=== PATIENT | male | born 1960 | race Caucasian/White ===

== ENCOUNTER 2018-08-16 16:45 | Inpatient (IN) | payer MEDICAID ==
[2018-08-15 22:00] VITALS: BP 152/64
[~2018-08-16] VITALS: Ht 165.1 cm; Wt 75.0 kg
[~2018-08-16 16:45] MED LIST: APIX5TAB3 PO; BISO1TAB39 PO; ETOD400T PO; FURO-150 PO; HUM7525 SQ; LANTUS SQ; LISI-600 PO; LYR75C PO; OXYC-145 PO; PANT40TA4 PO; TICA90TA2 PO
[2018-08-16] MEDS ORDERED: atropine 1 MG/1 ML vial IV ONE (17:15)
[2018-08-16] MEDS ORDERED: NORepinephrine bitartrate 8 MG in NS 250 ML BAG (32 mcg/ml) IV ONE (17:20)
--- NOTE | 2018-08-16 17:20 | NUR ---
PT PLACED ON ZOLL MONITOR. .5MG ATROPIN ADMINISTERED IV, DR RODRIGEZ AT BEDSIDE. PT HR 30.
[2018-08-16] MEDS ORDERED: atropine 0.1mg/ml 10ml syringe IV ONE (17:25)
[2018-08-16 17:39] LABS: BASOPHILS # (AUTO) 0.1 X10'3 (0-0.2); BASOPHILS % (AUTO) 0.9 % (0-1); EOSINOPHILS # (AUTO) 0.2 X10'3 (0-0.9); EOSINOPHILS % (AUTO) 3.1 % (0-6); HEMOGLOBIN 11.5 g/dl (14.0-17.9); LYMPHOCYTES # (AUTO) 1.6 X10'3 (1.1-4.8); LYMPHOCYTES % (AUTO) 21.1 % (21-51); MEAN CORPUSCULAR HEMOGLOBIN 29.6 PG (27.0-31.0); MEAN PLATELET VOLUME 9.4 FL (7.4-10.4); MONOCYTES # (AUTO) 0.8 X10'3 (0-0.9); MONOCYTES % (AUTO) 10.2 % (2-12); NEUTROPHILS % (AUTO) 64.7 % (42-75); PLATELET COUNT 164 X10'3 (140-440); RED CELL DISTRIBUTION WIDTH 13.4 % (11.5-14.5); WHITE BLOOD COUNT 7.8 X10'3 (4.5-11.0)
--- NOTE | 2018-08-16 17:41 | NUR ---
PT HR 30-34. SECOND DOSE OF .5MG ATROPINE IV ADMINISTERED IV. DR RODRIGEZ AWARE.
[2018-08-16 17:50] LABS: ALANINE AMINOTRANSFERASE 30 U/L (12-78); ALBUMIN 3.3 G/DL (3.4-5.0); ALBUMIN/GLOBULIN RATIO 0.9 (1.1-1.5); ALKALINE PHOSPHATASE 169 IU/L (46-116); ANION GAP 4 (8-16); ASPARTATE AMINO TRANSFERASE 14 U/L (10-37); BILIRUBIN,TOTAL 0.4 MG/DL (0.1-1.0); BLOOD UREA NITROGEN 26 MG/DL (7-18); BUN/CREATININE RATIO 16.1 (5.4-32.0); CALCIUM 8.7 MG/DL (8.5-10.1); CHLORIDE 100 MMOL/L (99-107); CREATININE 1.61 MG/DL (0.60-1.10); GLUCOSE 392 MG/DL (70-104); POTASSIUM 4.4 MMOL/L (3.5-5.1); SODIUM 133 MMOL/L (135-145); TOTAL CARBON DIOXIDE 28.8 MMOL/L (24-32); eGFR 44 ML/MIN
[2018-08-16 17:57] LABS: INR 1.2 INR; PARTIAL THROMBOPLASTIN TIME 39 SECONDS (22-32); PROTHROMBIN TIME 11.6 SECONDS (9.0-12.0)
[2018-08-16] MEDS ORDERED: NORepinephrine 8mg/ 250ml NS 250 ML IV SCH (18:00)
[2018-08-16] MEDS ORDERED: normal saline 1000ML IV soln IVB ONE (18:00)
[2018-08-16] MEDS ORDERED: atropine 0.1mg/ml 10ml syringe ONE (18:30)
[2018-08-16] MEDS ORDERED: 0.9 % SODIUM CHLORIDE 10 ML VIAL ONE (18:30)
[2018-08-16] MEDS ORDERED: DOPamine 400mg/D5W 250ml 250 ML IV SCH (18:55)
--- NOTE | 2018-08-16 19:15 | NUR ---
DR RODRIGEZ AT BEDSIDE GAVE VERBAL ORDER TO INCREASE DOPAMINE DRIP TO 10MCG/KG/MIN
[2018-08-16 19:16] LABS: ETHANOL < 0.010 GM/DL (0.0-0.010)
[2018-08-16] MEDS ORDERED: acetaminophen 325mg tablet PO PRN ×2 (20:10)
[2018-08-16] MEDS: K, MAG and/or Phos replacement - Verify level? MC SCH (20:10)
[2018-08-16] MEDS ORDERED: potassium Cl 20 mEq SR tablet PO PRN ×2 (20:10)
[2018-08-16] MEDS ORDERED: potassium Cl 40MEQ/NS 500ml 500 ML IV PRN ×2 (20:10)
[2018-08-16] MEDS ORDERED: morphine 4 MG/ML inj SYRINge IV PRN ×2 (20:10)
[2018-08-16] MEDS ORDERED: ondansetron/PF 4mg/2ml inj IV PRN (20:10)
[2018-08-16] MEDS ORDERED: PREG150C PO (20:15)
[2018-08-16] MEDS ORDERED: AMIO200T40 PO (20:15)
[2018-08-16] MEDS ORDERED: ATOR40TA PO (20:15)
[2018-08-16] MEDS ORDERED: DIGO125T78 PO (20:15)
[2018-08-16] MEDS ORDERED: LISI-604 PO (20:15)
[2018-08-16] MEDS ORDERED: LANTUS SQ (20:15)
[2018-08-16] MEDS ORDERED: CARV-50 PO (20:15)
[2018-08-16] MEDS ORDERED: ALBU8.5H8 INH (20:17)
[2018-08-16] MEDS ORDERED: albuterol 2.5 MG/3 ML nebule NEB SCH (20:25)
[2018-08-16] MEDS ORDERED: glucagon, human recombinant 1mg kit SUBCUT PRN (20:30)
[2018-08-16] MEDS ORDERED: dextrose 50%-water 50ml dispensing syringe IV PRN ×2 (20:30)
[2018-08-16] MEDS ORDERED: dextrose ORAL solution 15 GM/59 ML bottle PO PRN ×2 (20:30)
[2018-08-16] MEDS ORDERED: MESSAGE TO PHARMACY PO ONE (20:30)
[2018-08-16] MEDS: insulin glargine (Lantus) pen - multi-dose SQ SCH (21:00)
[2018-08-16 21:04] LABS: URINE AMPHETAMINE SCREEN NEGATIVE (Neg); URINE BARBITUATE SCREEN NEGATIVE (Neg); URINE BENZODIAZEPINES SCREEN NEGATIVE (Neg); URINE CANNABINOID SCREEN NEGATIVE (Neg); URINE COCAINE SCREEN NEGATIVE (Neg); URINE METHADONE SCREEN NEGATIVE (Neg); URINE OPIATE SCREEN POSITIVE (Neg); URINE PHENCYCLIDINE SCREEN NEGATIVE (Neg)
--- NOTE | 2018-08-16 21:24 | NUR ---
NON-ADMIN PT EVENING DOSE OF LANTUS. 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
[2018-08-16] MEDS ORDERED: NORMAL SALINE IV ONE (21:35)
[2018-08-16] MEDS ORDERED: DIGOXIN IMMUNE FAB IV ONE (21:35)
--- NOTE | 2018-08-16 21:45 | NUR ---
RN Note -Admission Received pt from ED. Alert and oriented, pleasant and cooperative, able to walk from gurney to bed with minimal assist. CVL kiki, notified. Pt wallet sent to safe.
[2018-08-16 23:00] VITALS: BP 136/65
[2018-08-17] VITALS (29 sets, daily range): BP systolic 93–161; BP diastolic 48–74
[2018-08-17 02:59] LABS: ALANINE AMINOTRANSFERASE 40 U/L (12-78); ALBUMIN/GLOBULIN RATIO 0.8 (1.1-1.5); ALKALINE PHOSPHATASE 151 IU/L (46-116); ANION GAP 6 (8-16); ASPARTATE AMINO TRANSFERASE 20 U/L (10-37); BILIRUBIN,TOTAL 0.5 MG/DL (0.1-1.0); BLOOD UREA NITROGEN 17 MG/DL (7-18); BUN/CREATININE RATIO 17.5 (5.4-32.0); CALCIUM 8.9 MG/DL (8.5-10.1); CHLORIDE 104 MMOL/L (99-107); CREATININE 0.97 MG/DL (0.60-1.10); GLUCOSE 202 MG/DL (70-104); MAGNESIUM 1.6 MG/DL (1.5-2.4); PHOSPHORUS 3.2 MG/DL (2.3-4.5); POTASSIUM 3.8 MMOL/L (3.5-5.1); SODIUM 138 MMOL/L (135-145); TOTAL CARBON DIOXIDE 27.6 MMOL/L (24-32); TOTAL PROTEIN 6.8 G/DL (6.4-8.2); eGFR 79 ML/MIN
[2018-08-17 03:13] LABS: BASOPHILS # (AUTO) 0.1 X10'3 (0-0.2); BASOPHILS % (AUTO) 0.7 % (0-1); EOSINOPHILS # (AUTO) 0.2 X10'3 (0-0.9); EOSINOPHILS % (AUTO) 2.3 % (0-6); HEMATOCRIT 34.9 % (42.0-52.0); LYMPHOCYTES # (AUTO) 1.5 X10'3 (1.1-4.8); LYMPHOCYTES % (AUTO) 16.8 % (21-51); MEAN CORPUSCULAR HEMOGLOBIN 29.6 PG (27.0-31.0); MEAN CORPUSCULAR HGB CONC 34.4 g/dL (33.0-36.5); MEAN CORPUSCULAR VOLUME 86.1 FL (78-98); MEAN PLATELET VOLUME 8.8 FL (7.4-10.4); MONOCYTES # (AUTO) 0.6 X10'3 (0-0.9); MONOCYTES % (AUTO) 7.1 % (2-12); NEUTROPHILS # (AUTO) 6.6 X10'3 (1.8-7.7); NEUTROPHILS % (AUTO) 73.1 % (42-75); PLATELET COUNT 175 X10'3 (140-440); RED BLOOD COUNT 4.06 X10'6 (4.70-6.10); RED CELL DISTRIBUTION WIDTH 12.9 % (11.5-14.5); WHITE BLOOD COUNT 9.1 X10'3 (4.5-11.0)
--- NOTE | 2018-08-17 05:30 | NUR ---
RN Note -Shift Summary Daughter, J Carlos, updated on pt condition. No hematoma or swelling at groin site.
--- NOTE | 2018-08-17 06:45 | NUR ---
Patient in room ICU 2045. I have received report from Mac RN and had the opportunity to ask questions and assume patient care.
[2018-08-17] MEDS: pantoprazole 40mg Tablet.DR PO SCH ×2 (07:52→08:00)
[2018-08-17] MEDS: K, MAG and/or Phos replacement - Verify level? MC SCH (07:53)
[2018-08-17] MEDS: apixaban 5mg tablet PO SCH ×2 (08:47→20:37)
[2018-08-17] MEDS: pregabalin 75mg capsule PO SCH ×2 (08:47→20:37)
[2018-08-17] MEDS: furosemide 20MG tablet PO SCH (08:47)
[2018-08-17] MEDS: ticagrelor 90mg tablet PO SCH ×2 (08:47→20:37)
[2018-08-17] MEDS: atorvastatin 20mg tablet PO SCH (08:48)
[2018-08-17] MEDS: lisinopril 5mg tablet PO SCH (08:48)
--- NOTE | 2018-08-17 12:36 | NUR ---
Dr. Jacobo vizcarra, okay'd to continue Percocet 1 tab (5/325 mg), 1 tablet every 4 -6 hours. States to titrate dopamine off, HR and BP is stable. Patient will possbily go home tomorrow as long as able to come off dopamine adequately.
[2018-08-17] MEDS: insulin Lispro (HumaLOG) vial - multi-dose SQ SCH ×3 (13:10→21:43)
[2018-08-17] MEDS: oxyCODONE/APAP 5-325mg tablet PO PRN ×2 (13:16→20:39)
--- NOTE | 2018-08-17 13:30 | NUR ---
Decreased dopamine to 3 mcg. Will cont. to monitor HR & BP.
--- NOTE | 2018-08-17 14:50 | NUR ---
Checked BP 113/56 HR 54 noted at this time at Dopamine @ 2 mcg, prior to Dopamine @ 3 mcg BP noted at 109/51 HR 56. Will cont. to monitor.
--- NOTE | 2018-08-17 15:50 | NUR ---
Turned off Dopamine drip, will cont. to monitor HR & BP.
--- NOTE | 2018-08-17 17:53 | NUR ---
DM consult: Pt with A1c 9.3 seen at bedside. Pt states he sees an MD q 3 months, takes Lantus and Humalog per rx without difficulties, and checks his BG levels 1 time a day. Pt denies any questions about DM management states he knows what he needs to do and that his daughter is a nurse that will help him if needed. Written DM ed with referral to outpatient DM class and RD contact information provided. Pt admit with bradycardia. Pt currently on a heart healthy diet with documented PO intake averaging 75% likely meeting nutrient needs. D/w bedside RN to add CHO controlled diet to diet order to better manage his BG levels. Pt denies any food allergies, difficulty chewing/swallowing, or constipation/diarrhea. [facility] 3/. Will continue to follow. Recommendations: 1) Continue heart healthy diet with the addition of CHO controlled 2) Wt per rx Addendum: 08/17/18 at [address] Amended: Links added.
--- NOTE | 2018-08-17 21:00 | NUR ---
Patient has complained of this "breathing problem" that has been intermittent since prior to admission. Patient states this "breathing problem" is what led him to come to the ER in the first place. When this nurse asks patient to describe this problem patient states "I just can't breathe for a few seconds and then it comes back, but I get anxious because I cannot breathe." Patient states he made physician aware on admission. No hypoxia noted on monitor, Patient O2 sat level 95% and above and he has not required O2 today except for comfort however SPO2 did not drop below 93%. Will cont. to monitor and will pass on to next nurse.
[2018-08-17] MEDS: insulin glargine (Lantus) pen - multi-dose SQ SCH (21:42)
--- NOTE | 2018-08-17 22:45 | NUR ---
Patient walked tonight, tolerated well 75 ft. Noted BP was low prior to walk but MAP was WNL, noted after walk was over MAP was 63, rechecked MAP after patient had rested in bed for a bit and noted MAP 67. Patient currently resting in bed with eyes closed.
[2018-08-18] VITALS (10 sets, daily range): BP systolic 91–118; BP diastolic 45–65
--- NOTE | 2018-08-18 03:06 | NUR ---
Patient in room ICU 2045. I have received report from Linda SANDHU and had the opportunity to ask questions and assume patient care.
[2018-08-18] MEDS: oxyCODONE/APAP 5-325mg tablet PO PRN (04:46)
--- NOTE | 2018-08-18 06:18 | NUR ---
Problems reprioritized. Patient report given, questions answered & plan of care reviewed with Kelly SANDHU.
[2018-08-18 06:34] LABS: BASOPHILS % (AUTO) 0.5 % (0-1); EOSINOPHILS # (AUTO) 0.3 X10'3 (0-0.9); EOSINOPHILS % (AUTO) 3.3 % (0-6); HEMATOCRIT 35.6 % (42.0-52.0); HEMOGLOBIN 12.3 g/dl (14.0-17.9); LYMPHOCYTES # (AUTO) 1.8 X10'3 (1.1-4.8); LYMPHOCYTES % (AUTO) 19.5 % (21-51); MEAN CORPUSCULAR HEMOGLOBIN 29.7 PG (27.0-31.0); MEAN CORPUSCULAR HGB CONC 34.6 g/dL (33.0-36.5); MEAN CORPUSCULAR VOLUME 85.7 FL (78-98); MONOCYTES # (AUTO) 0.9 X10'3 (0-0.9); MONOCYTES % (AUTO) 9.4 % (2-12); NEUTROPHILS # (AUTO) 6.1 X10'3 (1.8-7.7); NEUTROPHILS % (AUTO) 67.3 % (42-75); PLATELET COUNT 168 X10'3 (140-440); RED BLOOD COUNT 4.15 X10'6 (4.70-6.10); RED CELL DISTRIBUTION WIDTH 12.9 % (11.5-14.5); WHITE BLOOD COUNT 9.1 X10'3 (4.5-11.0)
[2018-08-18 06:55] LABS: ALANINE AMINOTRANSFERASE 33 U/L (12-78); ALBUMIN 2.8 G/DL (3.4-5.0); ALBUMIN/GLOBULIN RATIO 0.8 (1.1-1.5); ALKALINE PHOSPHATASE 146 IU/L (46-116); ANION GAP 7 (8-16); ASPARTATE AMINO TRANSFERASE 18 U/L (10-37); BILIRUBIN,TOTAL 0.5 MG/DL (0.1-1.0); BLOOD UREA NITROGEN 19 MG/DL (7-18); BUN/CREATININE RATIO 17.6 (5.4-32.0); CALCIUM 8.6 MG/DL (8.5-10.1); CHLORIDE 100 MMOL/L (99-107); CREATININE 1.08 MG/DL (0.60-1.10); GLUCOSE 179 MG/DL (70-104); MAGNESIUM 1.4 MG/DL (1.5-2.4); PHOSPHORUS 3.6 MG/DL (2.3-4.5); POTASSIUM 3.6 MMOL/L (3.5-5.1); SODIUM 135 MMOL/L (135-145); TOTAL CARBON DIOXIDE 28.4 MMOL/L (24-32); TOTAL PROTEIN 6.5 G/DL (6.4-8.2); eGFR 70 ML/MIN
[2018-08-18] MEDS: pantoprazole 40mg Tablet.DR PO SCH ×2 (08:00→08:11)
[2018-08-18] MEDS: furosemide 20MG tablet PO SCH (08:10)
[2018-08-18] MEDS: lisinopril 5mg tablet PO SCH (08:11)
[2018-08-18] MEDS: atorvastatin 20mg tablet PO SCH (08:11)
[2018-08-18] MEDS: ticagrelor 90mg tablet PO SCH (08:11)
[2018-08-18] MEDS: pregabalin 75mg capsule PO SCH (08:11)
[2018-08-18] MEDS: apixaban 5mg tablet PO SCH (08:11)
[2018-08-18] MEDS: K, MAG and/or Phos replacement - Verify level? MC SCH (08:17)
[2018-08-18] MEDS: insulin Lispro (HumaLOG) vial - multi-dose SQ SCH (08:49)
== END 2018-08-18 11:59 | disposition home or self-care (01) | DRG 812 ==
LOC: ER 16:46 → ED HOLD 20:06 → ICU 2S 21:20
PROVIDERS: ADMIT Internal Medicine Critical Care Medicine; ATTEND Internal Medicine Critical Care Medicine
PROC: 06HY33Z Insertion of Infusion Device into Lower Vein, Percutaneous Approach (ICD-10-PCS; principal; 2018-08-16)
DX: T46.0X1A Poisoning by cardiac-stimulant glycosides and drugs of similar action, accidental (unintentional), initial encounter (principal); R57.0 Cardiogenic shock; R00.1 Bradycardia, unspecified; I25.10 Atherosclerotic heart disease of native coronary artery without angina pectoris; Z86.73 Personal history of transient ischemic attack (TIA), and cerebral infarction without residual deficits; Z88.8 Allergy status to other drugs, medicaments and biological substances; Z90.49 Acquired absence of other specified parts of digestive tract; Z79.899 Other long term (current) drug therapy; Z95.1 Presence of aortocoronary bypass graft; Z79.01 Long term (current) use of anticoagulants; Z79.4 Long term (current) use of insulin; Y92.89 Other specified places as the place of occurrence of the external cause
CPT/HCPCS: 36415; 36556; 71045; 80053; 80162; 80305; 80320; 82948; 83036; 83735; 83880; 84100; 84443; 84484; 85025; 85610; 85730; 87070; 93005; 96374; 96375; 97116; 97162; 97530; 99291; G0378; J0461; J1162; J1265; J1815; J2270; J7030

== ENCOUNTER 2023-04-23 08:47 | Day surgery (SDC) | payer MEDICAID ==
[~2023-04-23] VITALS: Ht 165.1 cm; Wt 75.6 kg
[~2023-04-23 08:47] MED LIST changes: +ALBU8.5H17 INH; +ATOR40TA PO; -BISO1TAB39 PO; -ETOD400T PO; -LISI-600 PO; +LISI5TAB22 PO; -LYR75C PO; -OXYC-145 PO; -PANT40TA4 PO; +PANT40TA54 PO; +PREG150C PO
[2023-04-23 09:05] VITALS: BP 124/84; PULSE 85; RESP 16; TEMP 97.4; O2SAT 96
[2023-04-23] MEDS ORDERED: OXYC10TA47 PO (09:20)
[2023-04-23] MEDS ORDERED: EMPA10TA PO (09:21)
[2023-04-23] MEDS ORDERED: LIRA0.6P2 SQ (09:22)
--- NOTE | 2023-04-23 09:30 | NUR ---
Pt took Eliquis this morning. Called up to dental laboratory assistant to talk to Dr. Peng. Dr. Peng cancelled the case since pt took the Eliquis. Pt to reschedule.
[2023-04-24] MEDS ORDERED: vancomycin 1,500 MG in NS 300ml IV soln IV ONE (05:30)
[2023-04-24] MEDS ORDERED: normal saline 1000ml 1,000 ML IV SCH (05:30)
[2023-04-24] MEDS ORDERED: cefazolin 2gm/D5W 100mL 100 ML IV ONE (05:30)
== END 2023-04-23 09:35 | disposition home or self-care (01) ==
LOC: SSTAY O 08:47
PROVIDERS: ATTEND Internal Medicine Cardiovascular Disease
DX: I25.5 Ischemic cardiomyopathy (principal); Z53.8 Procedure and treatment not carried out for other reasons; I25.10 Atherosclerotic heart disease of native coronary artery without angina pectoris; E78.00 Pure hypercholesterolemia, unspecified; E11.9 Type 2 diabetes mellitus without complications; I25.2 Old myocardial infarction; I10 Essential (primary) hypertension; K21.9 Gastro-esophageal reflux disease without esophagitis; M19.09 Primary osteoarthritis, other specified site; Z98.890 Other specified postprocedural states; Z79.01 Long term (current) use of anticoagulants; Z79.899 Other long term (current) drug therapy; Z87.891 Personal history of nicotine dependence; Z88.8 Allergy status to other drugs, medicaments and biological substances; Z79.4 Long term (current) use of insulin; Z82.3 Family history of stroke; Z80.1 Family history of malignant neoplasm of trachea, bronchus and lung
CPT/HCPCS: 85610; 93005; J7030

== ENCOUNTER → 2023-05-04 | Day surgery (SDC) | payer MEDICAID ==
[~2023-05-04] VITALS: Ht 165.1 cm; Wt 75.3 kg
[~2023-05-04] MED LIST changes: +BISO5TAB29 PO; +EMPA10TA PO; +FLO0.4C PO; -HUM7525 SQ; +HYDROcodone/acetaminophen 10/325mg tab PO PRN; +HYDROcodone/acetaminophen 5mg/325mg tablet PO PRN; +HYDROmorphone 1 mg/ml syringe ONE; +LIDOcaine 1% W/epiNEPHrine 1:100,000 20ml vial ONE; +LIRA0.6P2 SQ; +OXYC10TA47 PO; -PREG150C PO; -TICA90TA2 PO; +VANCOMYCIN 1,500MG in NS 300ml IVPB IV ONE; +cefazolin 2gm/D5W 100mL 100 ML IV ONE; +fentaNYL/PF 50MCG/1 ML 2ML syringe ONE; +midazolam 1 mg/ML 2ml injection ONE; +normal saline 1000ml 1,000 ML IV SCH; +vancomycin 1,000mg inj ONE
[2023-05-04 07:00] VITALS: RESP 15; O2SAT 97
[2023-05-04] MEDS: normal saline 1000ml 1,000 ML IV SCH ×2 (07:00→07:29)
[2023-05-04 07:07] LABS: BASOPHILS # (AUTO) 0.1 X10'3 (0-0.2); BASOPHILS % (AUTO) 0.8 % (0-1); EOSINOPHILS # (AUTO) 0.3 X10'3 (0-0.9); EOSINOPHILS % (AUTO) 3.5 % (0-6); HEMATOCRIT 49.5 % (42.0-52.0); HEMOGLOBIN 16.5 g/dl (14.0-17.9); LYMPHOCYTES # (AUTO) 1.3 X10'3 (1.1-4.8); LYMPHOCYTES % (AUTO) 18.2 % (21-51); MEAN CORPUSCULAR HGB CONC 33.3 g/dL (33.0-36.5); MEAN CORPUSCULAR VOLUME 86.9 FL (78-98); MEAN PLATELET VOLUME 7.7 FL (7.4-10.4); MONOCYTES # (AUTO) 0.6 X10'3 (0-0.9); MONOCYTES % (AUTO) 8.9 % (2-12); NEUTROPHILS % (AUTO) 68.6 % (42-75); PLATELET COUNT 188 X10'3 (140-440); RED CELL DISTRIBUTION WIDTH 13.9 % (11.5-14.5); WHITE BLOOD COUNT 7.3 X10'3 (4.5-11.0)
[2023-05-04 07:11] LABS: ALBUMIN 3.7 G/DL (3.4-5.0); ANION GAP 8 (8-16); BLOOD UREA NITROGEN 17 MG/DL (7-18); BUN/CREATININE RATIO 15.5 (10.0-20.0); CALCIUM 8.9 MG/DL (8.5-10.1); CHLORIDE 104 MMOL/L (99-107); GLUCOSE 108 MG/DL (70-104); MAGNESIUM 2.2 MG/DL (1.5-2.4); POTASSIUM 4.2 MMOL/L (3.5-5.1); SODIUM 139 MMOL/L (135-145); TOTAL CARBON DIOXIDE 26.7 MMOL/L (24-32); eCRCL 60 ML/MIN; eGFR 68 ML/MIN
[2023-05-04 07:13] LABS: PROTHROMBIN TIME 10.4 SECONDS (9.0-12.0)
== END | disposition home or self-care (01) ==
LOC: SSTAY O 06:07
PROVIDERS: ATTEND Internal Medicine Cardiovascular Disease
DX: I25.5 Ischemic cardiomyopathy (principal); I42.0 Dilated cardiomyopathy; I11.0 Hypertensive heart disease with heart failure; I50.22 Chronic systolic (congestive) heart failure; I25.10 Atherosclerotic heart disease of native coronary artery without angina pectoris; I25.2 Old myocardial infarction; E78.00 Pure hypercholesterolemia, unspecified; E11.9 Type 2 diabetes mellitus without complications; K21.9 Gastro-esophageal reflux disease without esophagitis; M19.09 Primary osteoarthritis, other specified site; Z79.899 Other long term (current) drug therapy; Z79.01 Long term (current) use of anticoagulants; Z87.891 Personal history of nicotine dependence; Z88.8 Allergy status to other drugs, medicaments and biological substances; Z98.890 Other specified postprocedural states; Z82.3 Family history of stroke; Z80.1 Family history of malignant neoplasm of trachea, bronchus and lung
CPT/HCPCS: 33249; 36415; 80048; 83735; 85025; 85610; 93005; 99152; 99153; C1722; C1895; J1170; J2250; J3010; J3370; J3490; J7030; J7040; A4565; A6258